=== PATIENT | male | born 1995 | race Caucasian/White ===

== ENCOUNTER 2019-05-12 09:56 | Inpatient (IN) | payer OTHER ==
[~2019-05-12] VITALS: Ht 170.2 cm; Wt 79.5 kg
[~2019-05-12 09:56] MED LIST: FOLIC ACID 1 MG TAB PO SCH; MULTIVITAMINS/MINERALS THERAP 1 TAB PO SCH; THIAMINE 100 MG TAB PO SCH
[2019-05-12 11:07] LABS: HEMATOCRIT 46.7 % (42.0-52.0); HEMOGLOBIN 15.7 g/dl (13.5-17.5); MEAN CORPUSCULAR HEMOGLOBIN 30.3 pg (27.0-33.0); MEAN CORPUSCULAR HGB CONC 33.6 g/dl (32.0-36.5); MEAN CORPUSCULAR VOLUME 90.2 fl (80.0-96.0); PLATELET COUNT, AUTOMATED 227 10^3/uL (150-450); RED BLOOD COUNT 5.18 10^6/uL (4.30-6.10); WHITE BLOOD COUNT 8.8 10^3/uL (4.0-10.0)
[2019-05-12] MEDS ORDERED: LORazepam 2 MG TAB PO PRN ×2 (11:30→15:30)
[2019-05-12 11:42] LABS: AMPHETAMINES LEVEL URINE NEGATIVE (NEGATIVE); BARBITURATES URINE NEGATIVE (NEGATIVE); BENZODIAZEPINES URINE NEGATIVE (NEGATIVE); CANNABINOIDS URINE POSITIVE (NEGATIVE); COCAINE METABOLITE URINE NEGATIVE (NEGATIVE); METHADONE URINE NEGATIVE (NEGATIVE); OPIATES URINE NEGATIVE (NEGATIVE); PHENCYCLIDINE URINE NEGATIVE (NEGATIVE)
[2019-05-12 12:41] LABS: ALBUMIN 4.1 GM/DL (3.2-5.2); ALT/SGPT 22 U/L (12-78); BILIRUBIN,DIRECT 0.2 MG/DL (0.0-0.2); BILIRUBIN,TOTAL 0.6 MG/DL (0.2-1.0); BLOOD UREA NITROGEN 17 MG/DL (7-18); CALCIUM LEVEL 9.3 MG/DL (8.5-10.1); CARBON DIOXIDE LEVEL 29 MEQ/L (21-32); CHLORIDE LEVEL 108 MEQ/L (98-107); CREATININE FOR GFR 1.03 MG/DL (0.70-1.30); ETHYL ALCOHOL (ETHANOL) < 0.003 % (0.000-0.010); GLOMERULAR FILTRATION RATE > 60.0 (>60); GLUCOSE, FASTING 99 MG/DL (70-100); POTASSIUM SERUM 4.3 MEQ/L (3.5-5.1); SALICYLATE LEVEL < 1.7 MG/DL (5.0-30.0); SODIUM LEVEL 141 MEQ/L (136-145); THYROID STIMULATING HORMONE 0.792 uIU/ML (0.358-3.740); TOTAL PROTEIN 7.1 GM/DL (6.4-8.2)
[2019-05-12 12:48] LABS: ACETAMINOPHEN LEVEL < 2.0 UG/ML (10.0-30.0)
[2019-05-12] MEDS ORDERED: MAALOX 30 ML SUSP *UDC PO PRN (15:30)
[2019-05-12] MEDS ORDERED: MOM 30ML SUSPENSION UDC PO PRN (15:30)
[2019-05-12] MEDS ORDERED: ACETAMINOPHEN TAB 650MG DOSE (2X325MG) PO PRN (15:30)
[2019-05-12 17:00] VITALS: BP 138/86
[2019-05-12] MEDS: NICOTINE 7 MG/24 HR TRANSDERMAL TD SCH (19:46)
[2019-05-12] MEDS: traZODone 50 MG TAB PO PRN (20:50)
[2019-05-12] MEDS: THIAMINE 100 MG TAB PO SCH (20:50)
[2019-05-13 05:49] VITALS: BP 117/68
[2019-05-13] MEDS ORDERED: FOLIC ACID 1 MG TAB PO SCH (09:00)
[2019-05-13] MEDS ORDERED: MULTIVITAMINS/MINERALS THERAP 1 TAB PO SCH (09:00)
[2019-05-13] MEDS: THIAMINE 100 MG TAB PO SCH ×2 (09:33→21:32)
[2019-05-13] MEDS: NICOTINE 7 MG/24 HR TRANSDERMAL TD SCH (09:36)
[2019-05-13 09:37] VITALS: BP 117/68
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
--- NOTE | 2019-05-13 11:42 | HPEPDOC ---
General Date of Admission May 12, 2019 at 15:23 Date of Service: May 13, 2019 Chief Complaint The patient is a 24-year-old male admitted with a reason for visit of Unspecified Depressive Disorder. Source: Patient Exam Limitations: No limitations Associated Symptoms: Denies Symptoms History of Present Illness Mr. Higgins is a 24-year-old male who is admitted to the behavioral health unit with a diagnosis of an unspecified depressive disorder. Patient was brought to the [facility] ED from [facility] after voicing suicidal ideation with plan to hang himself. Patient does described a worsening in his symptoms of depression. He recently failed a urine drug screen in the [employer], with pretty significant consequences. At this time, he reported that he really doesn't care. He described being anhedonic for several months now. Patient denied any medical complaints at this time. Home Medications No Active Prescriptions or Reported Meds Allergies Coded Allergies: No Known Allergies (Unverified , 05/12/19) Past Medical History Medical History Polysubstance misuse. Depression with suicidal ideation Surgical History I and D, bilateral feet Family History Significant Family History: Cancer (mothercervical cancer. Fatherskin cancer), Hypertension (father and brother) Social History * Smoker: current smoker, cigarettes Alcohol: heavy (recently has been drinking half a bottle of rum per day) Drugs: other (history of polysubstance abuseLSD, cocaine, Xanax, ecstasy, marijuana, Percocet) A-FIB/CHADSVASC A-FIB History Current/History of A-Fib/PAF?: No Current PO Anticoag Therapy: No Review of Systems Constitutional: Denies: Chills, Fever, Night Sweats Eyes: Denies: Pain ENT: Denies: Head Aches Skin: Denies: Rash Pulmonary: Denies: Dyspnea, Cough Cardiovascular: Denies: Chest Pain, Palpitations, Edema Gastrointestinal: Denies: Nausea, Vomiting, Abdominal Pain, Diarrhea, Constipation Genitourinary: Denies: Dysuria, Retention Hematologic: Denies: Bruising Musculoskeletal: Denies: Neck Pain, Back Pain, Joint Pain, Muscle Pain, Spasms Neurological: Denies: Weakness, Numbness Psych: Reports: Depression, Thoughts of Self Harm; Denies: Mood Normal, Thoughts of Harming Other Physical Examination General Exam: Positive: Alert, Cooperative, No Acute Distress Eye Exam: Positive: PERRLA, Conjunctiva & lids normal, EOMI; Negative: Sclera icteric ENT Exam: Positive: Atraumatic, Mucous membr. 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 Depression with suicidal ideation. Management per psychiatry Medicine will sign off at this time. Please re-consult as needed. Plan / VTE VTE Prophylaxis Ordered?: No SOLITARIO JHAVERI PA-C May 13, 2019 11:42
[2019-05-13] MEDS ORDERED: SERTRALINE HCL 25 MG TABLET PO ONE (16:00)
[2019-05-13 17:51] VITALS: BP 151/84
[2019-05-13 18:58] VITALS: BP 151/84
[2019-05-13] MEDS: traZODone 50 MG TAB PO PRN (21:32)
[2019-05-14 07:12] VITALS: BP 106/60
[2019-05-14] MEDS ORDERED: SERTRALINE HCL 25 MG TABLET PO SCH (09:00)
[2019-05-14] MEDS: NICOTINE 7 MG/24 HR TRANSDERMAL TD SCH (09:28)
--- NOTE | 2019-05-14 10:43 | MHIPNPDOC ---
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 He has been currently in a chapter due to using marijuana. He reports that he was feeling increasingly depressed and had tried drugs to help cope, but that this might have cost him his job. The patient reports that he generally has some anxiety about the situation, but is on no current medications and last tried medications when he was a child. Interval History The patient is met with today in his room. He reports that he is notably more focused, but feels emotionally blunted on the sertraline. He additionally reports some headache and some mild GI upset, he is interested in trying a different medication. He has been attending groups fairly well and is engaged in the milieu. He reports that he is still anxious waiting Zemanta's determination on his chapter. He has had no major behavioral problems overnight and reports that he is less irritable today since starting the sertraline. Review Of Systems General: Denies fever or appetite changes Cardiovascular: Denies Chest pain or palpations GI: As above Respiratory: Denies shortness of breath or cough Neuro: Denies dizziness, tremors Derm: Denies any rashes or pruritus : Denies any dysuria or urinary problems MSK: Denies any muscle tightness or stiffness HEENT: As above Psychotherapy None on this visit. Vital Signs Reviewed. Mental Status Examination General: Well dressed with good hygiene Speech: Spontaneous and fluid Thought processes: Linear and logical MSK: Smooth and coordinated gait, no signs of tremors or involuntary orofacial movements Thought content: Future orientated Abstract reasoning, and computation: Intact Description of associations: Intact Description of abnormal or psychotic thoughts: Denies any suicidal or homicidal ideation. Denies any auditory or visual hallucinations. Does not appear to be responding to internal stimuli. Does not appear to be endorsing any bizarre or paranoid ideation. Judgment: fair Insight: fair Orientation: Alert and orientated 3 Cognition: Grossly normal Recent and remote memory: Intact Attention span and concentration: Intact Fund of knowledge: Adequate Mood: "okay" Affect: Mildly dysthymic with the restricted range. Diagnoses Unspecified depressive disorder. Substance versus adjustment. Alcohol use disorder, severe. Marijuana use disorder, mild. Opioid use disorder, mild. Assessment and Plan Unspecified depressive disorder: Discontinue sertraline, start Wellbutrin. Discussed the risks, benefits, potential side effects, as well as, alternatives with patient. Alcohol use disorder: [facility] protocol. Opioid/marijuana use disorder: Recommend outpatient addiction treatment. Disposition Patient will be converted to a voluntary status, discussed with patient discharge will be arranged for Sunday as no longer suicidal, wishes to be placed on proper medication, and does not wish to stay during the weekend. Time Spent 15 minutes Sunday Vital Signs Vital Signs Date Time Temp Pulse Resp B/P (MAP) Pulse Ox O2 Delivery O2 Flow Rate FiO2 05/14/19 09:45 Room Air 05/14/19 07:12 98.4 52 14 106/60 (75) 05/12/19 17:00 98 Current Medications Current Medications Medications (Trade) Dose Ordered Sig/Casey Route PRN Reason Start Time Stop Time Status Last Admin Dose Admin Acetaminophen (Tylenol Tab) 650 mg Q6HP PRN PO HEADACHE or DISCOMFORT 05/12/19 15:30 Al Hydrox/Mg Hydrox/Simethicone (Mylanta) 30 ml Q4HP PRN PO HEARTBURN/INDIGESTION 05/12/19 15:30 Folic Acid (Folic Acid) 1 mg DAILY PO 05/13/19 09:00 05/14/19 06:25 DC 05/13/19 09:36 Folic Acid (Folic Acid) 1 mg DAILY PO 05/12/19 09:00 05/12/19 15:42 DC 05/12/19 12:20 Home Med (Med Rec Complete!) ASDIRECTED XX 05/12/19 15:15 05/12/19 15:07 DC Lorazepam (Ativan) 2 mg ASDIRECTED PRN PO SEE PROTOCOL 05/12/19 11:30 05/12/19 15:44 DC Lorazepam (Ativan) 2 mg ASDIRECTED PRN PO SEE PROTOCOL 05/12/19 15:30 Cancel Magnesium Hydroxide (Milk Of Magnesia) 30 ml DAILYPRN PRN PO CONSTIPATION 05/12/19 15:30 Multivitamins (Theragram-M) 1 tab DAILY PO 05/13/19 09:00 05/14/19 06:25 DC 05/13/19 09:33 Multivitamins (Theragram-M) 1 tab DAILY PO 05/12/19 09:00 05/12/19 15:43 DC 05/12/19 12:20 Nicotine (Nicoderm Cq 7 Mg) 1 patch DAILY TD 05/12/19 19:00 05/14/19 09:28 Sertraline HCl (Zoloft) 25 mg DAILY PO 05/14/19 09:00 05/14/19 09:27 Thiamine HCl (Thiamine HCl) 100 mg BID PO 05/12/19 09:00 05/12/19 15:43 DC 05/12/19 12:21 Thiamine HCl (Thiamine HCl) 100 mg BID PO 05/12/19 21:00 05/14/19 06:25 DC 05/13/19 21:32 Trazodone HCl (Desyrel) 50 mg QHSP PRN PO INSOMNIA 05/12/19 15:30 05/13/19 21:32 Allergies Coded Allergies: No Known Allergies (Unverified , 05/12/19) JERE MEZA 11, 2020 10:43
[2019-05-14] MEDS ORDERED: buPROPion **XL** TABLET 150MG (WELLBUTRIN XL) PO ONE (13:15)
[2019-05-14 17:47] VITALS: BP 159/84
[2019-05-14] MEDS: traZODone 50 MG TAB PO PRN (22:16)
[2019-05-15 06:11] VITALS: BP 103/53
[2019-05-15] MEDS ORDERED: buPROPion **XL** TABLET 150MG (WELLBUTRIN XL) PO SCH (09:00)
[2019-05-15] MEDS: NICOTINE 7 MG/24 HR TRANSDERMAL TD SCH (09:57)
[2019-05-15] MEDS ORDERED: NICO7PA TD (12:15)
[2019-05-15] MEDS ORDERED: BUPR150T3 PO (12:15)
--- NOTE | 2019-05-15 12:19 | MHIPNPDOC ---
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 He has been currently in a chapter due to using marijuana. He reports that he was feeling increasingly depressed and had tried drugs to help cope, but that this might have cost him his job. The patient reports that he generally has some anxiety about the situation, but is on no current medications and last tried medications when he was a child. Interval History The patient is met with today. He reports that he is doing well and feeling ready for discharge tomorrow. The patient's discharge orders were arranged ahead of time, as he will likely need to leave before rounding starts in order to get to [facility] on time. The patient otherwise is doing well, per staff and has attended groups frequently. He reports no significant anxiety or depression symptoms. Review Of Systems General: Denies fever or appetite changes Cardiovascular: Denies Chest pain or palpations GI: Resolved Respiratory: Denies shortness of breath or cough Neuro: Denies dizziness, tremors Derm: Denies any rashes or pruritus : Denies any dysuria or urinary problems MSK: Denies any muscle tightness or stiffness HEENT: Resolved Psychotherapy None on this visit. Vital Signs Reviewed. Mental Status Examination General: Well dressed with good hygiene Speech: Spontaneous and fluid Thought processes: Linear and logical MSK: Smooth and coordinated gait, no signs of tremors or involuntary orofacial movements Thought content: Future orientated Abstract reasoning, and computation: Intact Description of associations: Intact Description of abnormal or psychotic thoughts: Denies any suicidal or homicidal ideation. Denies any auditory or visual hallucinations. Does not appear to be responding to internal stimuli. Does not appear to be endorsing any bizarre or paranoid ideation. Judgment: fair Insight: fair Orientation: Alert and orientated 3 Cognition: Grossly normal Recent and remote memory: Intact Attention span and concentration: Intact Fund of knowledge: Adequate Mood: "okay" Affect: Euthymic with a full range Diagnoses Unspecified depressive disorder. Substance versus adjustment. Alcohol use disorder, severe. Marijuana use disorder, mild. Opioid use disorder, mild. Assessment and Plan Unspecified depressive disorder: Continue Wellbutrin 150 mg daily. Alcohol use disorder: [facility] protocol will self , no need to continue. Opioid/marijuana use disorder: Recommend outpatient addiction treatment. 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 Time Spent 15 minutes Vital Signs Vital Signs Date Time Temp Pulse Resp B/P (MAP) Pulse Ox O2 Delivery O2 Flow Rate FiO2 05/15/19 06:11 97.7 53 16 103/53 (70) 05/14/19 09:45 Room Air 05/12/19 17:00 98 Current Medications Current Medications Medications (Trade) Dose Ordered Sig/Casey Route PRN Reason Start Time Stop Time Status Last Admin Dose Admin Acetaminophen (Tylenol Tab) 650 mg Q6HP PRN PO HEADACHE or DISCOMFORT 05/12/19 15:30 Al Hydrox/Mg Hydrox/Simethicone (Mylanta) 30 ml Q4HP PRN PO HEARTBURN/INDIGESTION 05/12/19 15:30 Bupropion HCl (Wellbutrin Xl) 150 mg DAILY PO 05/15/19 09:00 05/15/19 09:56 Folic Acid (Folic Acid) 1 mg DAILY PO 05/13/19 09:00 05/14/19 06:25 DC 05/13/19 09:36 Folic Acid (Folic Acid) 1 mg DAILY PO 05/12/19 09:00 05/12/19 15:42 DC 05/12/19 12:20 Home Med (Med Rec Complete!) ASDIRECTED XX 05/12/19 15:15 05/12/19 15:07 DC Lorazepam (Ativan) 2 mg ASDIRECTED PRN PO SEE PROTOCOL 05/12/19 11:30 05/12/19 15:44 DC Lorazepam (Ativan) 2 mg ASDIRECTED PRN PO SEE PROTOCOL 05/12/19 15:30 Cancel Magnesium Hydroxide (Milk Of Magnesia) 30 ml DAILYPRN PRN PO CONSTIPATION 05/12/19 15:30 Multivitamins (Theragram-M) 1 tab DAILY PO 05/13/19 09:00 05/14/19 06:25 DC 05/13/19 09:33 Multivitamins (Theragram-M) 1 tab DAILY PO 05/12/19 09:00 05/12/19 15:43 DC 05/12/19 12:20 Nicotine (Nicoderm Cq 7 Mg) 1 patch DAILY TD 05/12/19 19:00 05/15/19 09:57 Sertraline HCl (Zoloft) 25 mg DAILY PO 05/14/19 09:00 05/14/19 13:11 DC 05/14/19 09:27 Thiamine HCl (Thiamine HCl) 100 mg BID PO 05/12/19 09:00 05/12/19 15:43 DC 05/12/19 12:21 Thiamine HCl (Thiamine HCl) 100 mg BID PO 05/12/19 21:00 05/14/19 06:25 DC 05/13/19 21:32 Trazodone HCl (Desyrel) 50 mg QHSP PRN PO INSOMNIA 05/12/19 15:30 05/14/19 22:16 Allergies Coded Allergies: No Known Allergies (Unverified , 05/12/19) JERE MEZA 12, 2020 12:19
[2019-05-15 15:32] VITALS: BP 156/83
[2019-05-15] MEDS: traZODone 50 MG TAB PO PRN (22:08)
[2019-05-16 06:24] VITALS: BP 118/59
--- NOTE | 2019-05-19 09:39 | MHDSPDOC ---
[facility] Discharge Summary Discharge Summary DATE OF ADMISSION: May 12, 2019 at 15:23 DATE OF DISCHARGE: May 16, 2019 at 08:45 Discharge Vince Higgins MRN: N/A Date of : N/A Date of Service: 05/19/2019 Diagnoses Unspecified depressive disorder. Substance versus adjustment. Alcohol use disorder, severe. Marijuana use disorder, mild. Opioid use disorder, mild. 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 He has been currently in a chapter due to using marijuana. He reports that he was feeling increasingly depressed and had tried drugs to help cope, but that this might have cost him his job. The patient reports that he generally has some anxiety about the situation, but is on no current medications and last tried medications when he was a child. Consultants Involved Hospitalist/PCP screening Treatment and Progress On The Unit The patient was admitted to the inpatient mental health unit and initially tried on sertraline 25 mg daily. He reports that this did well and he tolerated the medication well. He did well in groups, was social and had no behavioral problems. He appeared to benefit from the therapeutic groups, although his insight into his drug use and his position with the did not improve significantly, this appears to be a chronic problem. Otherwise, the patient did well with little beyond supportive treatment, suggesting either substance or adjustment. Discharge Assessment 24-year-old man with a history of substance use and likely adjustment, presents and is treated with low-dose antidepressant and supportive environment, does well, improves and is discharged in short order. The patient at the time of discharge did not meet criteria for involuntary admission/extension due to having a normal mental status exam, fair insight into the situation, They are engaged in the discharge process, as well as being friendly and amenable in behavioral control and havent been engaging in any observed concerning behavior or ideation recently. They decline voluntary extension/admission at this time and must be discharged in good katie, as Im unable to make a case for holding the patient against their will. They may have historical risk factors of admissions and other interactions with psychiatry however, those are not modifiable from a clinical perspective. The patient will need to be discharged in good katie. Mental Status Examination General: Well dressed with good hygiene Speech: Spontaneous and fluid Thought processes: Linear and logical MSK: Smooth and coordinated gait, no signs of tremors or involuntary orofacial movements Thought content: Future orientated Abstract reasoning, and computation: Intact Description of associations: Intact Description of abnormal or psychotic thoughts: Denies any suicidal or homicidal ideation. Denies any auditory or visual hallucinations. Does not appear to be responding to internal stimuli. Does not appear to be endorsing any bizarre or paranoid ideation. Judgment: fair Insight: fair Orientation: Alert and orientated 3 Cognition: Grossly normal Recent and remote memory: Intact Attention span and concentration: Intact Fund of knowledge: Adequate Mood: "okay" Affect: Euthymic with a full range Follow Up The social work team worked during the predischarge meeting in order to evaluate for further issues of lethality address them fully before discharge. They worked on safety planning with the patient's family members in order to ensure that the patient will have a safe and effective discharge. Time Spent The amount of time spent in the coordination of care for this patient was approximately 45 minutes. Sunday Vital Signs/I&Os Vital Signs Date Time Temp Pulse Resp B/P (MAP) Pulse Ox O2 Delivery O2 Flow Rate FiO2 05/16/19 06:24 97.6 73 12 118/59 (78) Room Air Medications Scheduled Bupropion Hcl (Bupropion Xl) 150 Mg Tab.er.24h, 150 MG PO DAILY for mood for 7 Days, #7 Nicotine (Nicotine Patch) 7 Mg Patch.td24, 1 PATCH TD DAILY for tobacco for 30 Days, #30 Allergies Coded Allergies: No Known Allergies (Unverified , 05/12/19) JERE MEZA DO May 19, 2019 09:39
== END 2019-05-16 08:45 | disposition home or self-care (01) | DRG 881 ==
LOC: M ED 09:56 → M ED INP 15:23 → M PSY 16:10
PROVIDERS: ADMIT Psychiatry & Neurology Addiction Medicine; ATTEND Psychiatry & Neurology Addiction Medicine
DX: F32.9 Major depressive disorder, single episode, unspecified (principal); F10.20 Alcohol dependence, uncomplicated; F43.21 Adjustment disorder with depressed mood; F12.10 Cannabis abuse, uncomplicated; F11.10 Opioid abuse, uncomplicated; F17.210 Nicotine dependence, cigarettes, uncomplicated; Z62.810 Personal history of physical and sexual abuse in childhood; Z62.811 Personal history of psychological abuse in childhood